=== PATIENT | female | born 1935 | race African-American/Black ===

== ENCOUNTER 2019-05-08 18:42 | Emergency (ER) | payer OTHER, MEDICARE ==
[~2019-05-08] VITALS: Ht 167.6 cm; Wt 100.2 kg
[2019-05-08 19:03] LABS: EOSINOPHILS 3.9 % (0.0-3.0); HEMATOCRIT 41.3 % (37.0-47.0); HEMOGLOBIN 13.5 gm/dL (12.0-15.0); LYMPHOCYTES 16.1 % (24.0-44.0); MCH 26.8 pg (26.0-34.0); MCHC 32.6 g/dL (28.0-37.0); MCV 82.2 fL (80.0-100.0); MONOCYTES 8.5 % (1.0-8.0); PLATELET COUNT 139 thou/uL (150-400); POLYS 70.5 % (36.0-66.0); RBC 5.03 mil/uL (4.20-5.00); RDW 14.9 % (10.5-14.5); WBC 5.7 thou/uL (4.0-11.0)
[2019-05-08 19:10] LABS: ANION GAP 7 mmol/L (7-16); BUN 9 mg/dL (7-18); CALCIUM 9.4 mg/dL (8.5-10.1); CHLORIDE 103 mmol/L (98-107); CO2 29 mmol/L (21-32); GLUCOSE 117 mg/dL (74-106); POTASSIUM 3.9 mmol/L (3.5-5.1); SODIUM 139 mmol/L (136-145)
[2019-05-08 19:20] LABS: ALBUMIN 3.7 g/dL (3.4-5.0); SGOT 26 U/L (15-37); SGPT 16 U/L (30-65); TOTAL BILIRUBIN 0.6 mg/dL (<0.1-1.0); TOTAL PROTEIN 8.2 g/dL (6.4-8.2); TROPONIN-I <0.06 ng/mL (<0.06)
[2019-05-08] MEDS ORDERED: METHOCARBAMOL500 M2 PO (20:02)
[2019-05-08] MEDS ORDERED: TRAMADOL 50 MG50 MG PO (20:02)
[2019-05-08 20:39] VITALS: BP 174/99
--- NOTE | 2019-05-09 08:23 | EKG ---
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[facility] : 1935 Requested By: Patrick Brewster Order Number: [id number] MD: Kade Givens Measurements Intervals [place] Rate: 91 P: 60 [place]: 269 QRS: -12 QRSD: 92 T: 58 QT: 348 QTc: 429 Interpretive Statements Sinus rhythm Prolonged [place] interval Compared to ECG 09/28/2003 07:39:22 Pacing is no longer present Electronically Signed On 05-09-2019 8:21:43 CDT by Kade Givens [email or web address] <ELECTRONICALLY SIGNED> By: Kade Givens MD, FACC 05/09/19 0821 1857 56 Kade Givens MD, [facility] /EPI
== END 2019-05-08 20:40 | disposition home or self-care (01) ==
LOC: ER 18:42
PROVIDERS: Emergency Medicine
DX: R07.89 Other chest pain (principal); J03.90 Acute tonsillitis, unspecified; R20.2 Paresthesia of skin; G44.209 Tension-type headache, unspecified, not intractable; I10 Essential (primary) hypertension; I49.5 Sick sinus syndrome; I48.91 Unspecified atrial fibrillation; Z90.49 Acquired absence of other specified parts of digestive tract; Z90.710 Acquired absence of both cervix and uterus; Z95.0 Presence of cardiac pacemaker; Z98.890 Other specified postprocedural states

== ENCOUNTER 2020-11-06 09:05 | Emergency (ER) | payer OTHER, MEDICARE ==
[~2020-11-06] VITALS: Ht 167.6 cm; Wt 122.5 kg
--- NOTE | ~2020-11-06 | EMS ---
[place] [address] EMS Patient Care Report Name: RAINER BROOKE Room #: DEP MATA Coker#: [id number] Admission: 11/06/20 Attend Phys: Discharge: 11/06/20 Date of : 35 Report #: [id number] THIS REPORT FOR: //name// Report Transmitted: 11/08/2020 13:16 EMS Care Summary [place], [place]/[facility] Incident [id number] @ 11/06/2020 08:24 Incident Location [address] [place] [address] Patient RAINER BROOKE Female, 85 Years 1935 Patient Address [address] [place] [address] Patient History Hypertension (HTN), Patient Allergies Sulfur allergy, Patient Medications Clonidine, Chief Complaint head pain Disposition Transported No Lights/Pe [place] Dispatch Reason Falls Transported To [facility] Narrative ems met p52 on scene. pt found sitting upright in chair and alert. pt a&ox4 gcs 15 and did not present in apparent distress. pt stated she tripped and fell and [address] [address] EMS Patient Care Report Name: RAINER BROOKE Room #: DEP AmyNorm#: [id number] Admission: 11/06/20 Attend Phys: Discharge: 11/06/20 Date of : 35 Report #: [id number] hit her head. neg loc. pt has a hematoma to her forehead. neg bloodthinners. pt was apprehensive initially but then requested to be transported to [facility]. pt has no other complaints. 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 pt stood up and walked around apartment for her belongings. pt was transferred onto ems cot and was secured in a semi fowlers position without incident. pt was loaded into ambulance. pt was loaded into ambulance. pt was transported non emergent. transport was uneventful and pt rested on ems cot. pt care was transferred to appropriate staff and ems goes back in service. pts purse was left with pt. Initial Vitals @08:44P: 104,R: 20,BP: 166/94,Pain: 2/10,GCS: 15,SpO2: 97,Revised Trauma: 12, @09:00P: 102,R: 20,BP: 144/90,GCS: 15,SpO2: 96,Revised Trauma: 12, Assessments @08:36MENTAL:No Abnormalities,SKIN:No Abnormalities,HEENT:Head/Face: Swelling,Eyes: No Abnormalities,Neck/Airway: No Abnormalities,LUNG SOUNDS:General: No Abnormalities,Left Upper: No Abnormalities,Right Upper: No Abnormalities,Left Lower: No Abnormalities,Right Lower: No Abnormalities,ABDOMEN:General: No Abnormalities,Left Upper: No Abnormalities,Right Upper: No Abnormalities,Left Lower: No Abnormalities,Right Lower: No Abnormalities,PELVIS//GI:No Abnormalities,EXTREMITIES:Left Arm: No Abnormalities,Right Arm: No Abnormalities,Left Leg: No Abnormalities,Right Leg: No Abnormalities,PULSE:NEURO:No Abnormalities,@08:52MENTAL:No Abnormalities,SKIN:No Abnormalities,HEENT:Head/Face: No Abnormalities,Eyes: No Abnormalities,Neck/Airway: No Abnormalities,LUNG SOUNDS:General: No Abnormalities,Left Upper: No Abnormalities,Right Upper: No Abnormalities,Left Lower: No Abnormalities,Right Lower: No Abnormalities,ABDOMEN:General: No Abnormalities,Left Upper: No Abnormalities,Right Upper: No Abnormalities,Left Lower: No Abnormalities,Right Lower: No Abnormalities,PELVIS//GI:No Abnormalities,EXTREMITIES:Left Arm: No Abnormalities,Right Arm: No Abnormalities,Left Leg: No Abnormalities,Right Leg: No Abnormalities,PULSE:NEURO:No Abnormalities, Impression Acute Pain, not elsewhere classified Procedures @08:36ALS AssessmentResponse: UnchangedSucceeded@PTASpinal Motion RestrictionResponse: UnchangedSucceeded Timeline 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,Spinal Motion Restriction,Response: UnchangedSucceeded, 08:23,Call Received 08:23,Dispatch Notified 08:24,Dispatched 08:25,En Route [address] [address] EMS Patient Care Report Name: RAINER BROOKE Room #: ANGIE Coker#: [id number] Admission: 11/06/20 Attend Phys: Discharge: 11/06/20 Date of : 35 Report #: [id number] 08:35,On Scene 08:36,At Patient 08:36,ALS Assessment,Response: UnchangedSucceeded, 08:44,BP: 166/94 M,PULSE: 104,RR: 20 R,SPO2: 97 Ox,ETCO2: ,BG: ,PAIN: 2,GCS: 15, 08:48,Depart Scene 09:00,BP: 144/90 M,PULSE: 102,RR: 20 R,SPO2: 96 Ox,ETCO2: ,BG: ,PAIN: ,GCS: 15, 09:03,At Destination 09:10,Call Closed Disclaimer v1.1 Copyright 2020 [employer] This EMS Care Summary contains data elements from the applicable legal record (which may be displayed differently). It is designed to provide pertinent information for the following purposes: continuity of care, clinical quality, and state data reporting. The complete legal record is available to ED staff and administrators of the receiving hospital in [employer]'s Patient Tracker. All data is provided "as is."
[~2020-11-06 09:05] MED LIST: METHOCARBAMOL500 M2 PO; TRAMADOL 50 MG50 MG PO
[2020-11-06 09:45] LABS: ABSOLUTE NEUTROPHILS 3.5 thou/uL (1.4-8.2); BASOPHILS 0.4 % (0.0-2.0); EOSINOPHILS 3.8 % (0.0-3.0); HEMOGLOBIN 12.6 gm/dL (12.0-15.0); LYMPHOCYTES 19.2 % (24.0-44.0); MCH 26.3 pg (26.0-34.0); MCHC 32.3 g/dL (28.0-37.0); MCV 81.5 fL (80.0-100.0); MONOCYTES 9.9 % (1.0-8.0); PLATELET COUNT 123 thou/uL (150-400); POLYS 66.7 % (36.0-66.0); RBC 4.79 mil/uL (4.20-5.00); RDW 14.3 % (10.5-14.5); WBC 5.2 thou/uL (4.0-11.0)
[2020-11-06 09:48] LABS: CALCIUM 9.3 mg/dL (8.5-10.1); CREATININE 1.3 mg/dL (0.6-1.0)
[2020-11-06 09:50] LABS: POTASSIUM 4.1 mmol/L (3.5-5.1)
[2020-11-06 09:53] LABS: ALBUMIN 3.4 g/dL (3.4-5.0); TOTAL BILIRUBIN 0.4 mg/dL (0.2-1.0); TOTAL PROTEIN 7.6 g/dL (6.4-8.2)
[2020-11-06 11:52] LABS: URINE BILIRUBIN NEGATIVE (Negative); URINE BLOOD NEGATIVE (Negative); URINE CLARITY CLEAR; URINE COLOR YELLOW; URINE GLUCOSE-RANDOM* NEGATIVE (Negative); URINE KETONES NEGATIVE (Negative); URINE LEUKOCYTES-REFLEX NEGATIVE (Negative); URINE NITRITE-REFLEX NEGATIVE (Negative); URINE PROTEIN (DIPSTICK) NEGATIVE (Negative); URINE UROBILINOGEN 0.2 E.U./dl (0.2-1.0)
[2020-11-06 12:30] VITALS: BP 167/98
--- NOTE | 2020-11-07 07:59 | EKG ---
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1935 Requested By: Seferino Noguera Order Number: [id number] MD: Kade Givens Measurements Intervals [place] Rate: 70 P: 41 FL: 282 QRS: -23 QRSD: 98 T: 4 QT: 395 QTc: 427 Interpretive Statements Sinus rhythm Prolonged [place] interval Inferior infarct, old Compared to ECG 05/08/2019 18:57:55 Inferior Q waves are more prominent Electronically Signed On 11-07-2020 7:59:33 CDT by Kade Givens [email or web address] <ELECTRONICALLY SIGNED> By: Kade Givens MD, [facility] 11/07/20 0759 0915 4 Kade Givens MD, FACC /EPI
== END 2020-11-06 12:33 | disposition home or self-care (01) ==
LOC: ER 09:05
PROVIDERS: Emergency Medicine
DX: S00.03XA Contusion of scalp, initial encounter (principal); M54.2 Cervicalgia; I10 Essential (primary) hypertension; I48.0 Paroxysmal atrial fibrillation; Z90.711 Acquired absence of uterus with remaining cervical stump; Z90.49 Acquired absence of other specified parts of digestive tract; Z90.89 Acquired absence of other organs; Z98.890 Other specified postprocedural states; Z79.899 Other long term (current) drug therapy; Z88.2 Allergy status to sulfonamides; Z91.018 Allergy to other foods; W01.0XXA Fall on same level from slipping, tripping and stumbling without subsequent striking against object, initial encounter; Y93.89 Activity, other specified; Y92.091 Bathroom in other non-institutional residence as the place of occurrence of the external cause; Y99.8 Other external cause status

== ENCOUNTER 2020-12-12 08:59 | Inpatient (IN) | payer OTHER, MEDICARE ==
[~2020-12-12] VITALS: Ht 167.6 cm; Wt 100.2 kg
[2020-12-12 09:00] VITALS: BP 170/101
[2020-12-12] MEDS ORDERED: LANSOPRAZOLE30 MG PO (09:25)
[2020-12-12] MEDS ORDERED: METHADONE HCL 110 M1 PO (09:25)
[2020-12-12] MEDS ORDERED: CARVEDILOL25 MG PO (09:26)
[2020-12-12] MEDS ORDERED: CLONIDINE HCL0.1 MG PO (09:26)
[2020-12-12] MEDS ORDERED: NEURONTIN 300M300 M2 PO (09:26)
[2020-12-12] MEDS ORDERED: RAMIPRIL10 MG PO (09:26)
[2020-12-12] MEDS ORDERED: AMLODIPINE BESY10 MG PO (09:26)
[2020-12-12] MEDS ORDERED: FUROSEMIDE 20 M20 M1 PO (09:27)
[2020-12-12 09:39] LABS: ABSOLUTE NEUTROPHILS 5.3 thou/uL (1.4-8.2); BASOPHILS 0.3 % (0.0-2.0); EOSINOPHILS 1.6 % (0.0-3.0); HEMATOCRIT 39.8 % (37.0-47.0); MCH 26.7 pg (26.0-34.0); MCHC 32.6 g/dL (28.0-37.0); MCV 81.9 fL (80.0-100.0); MONOCYTES 6.4 % (1.0-8.0); PLATELET COUNT 129 thou/uL (150-400); POLYS 78.7 % (36.0-66.0); RBC 4.86 mil/uL (4.20-5.00); RDW 14.7 % (10.5-14.5); WBC 6.7 thou/uL (4.0-11.0)
[2020-12-12 09:45] LABS: URINE BILIRUBIN NEGATIVE (Negative); URINE BLOOD 1+ (Negative); URINE CLARITY CLEAR; URINE COLOR YELLOW; URINE GLUCOSE-RANDOM* NEGATIVE (Negative); URINE KETONES NEGATIVE (Negative); URINE LEUKOCYTES-REFLEX NEGATIVE (Negative); URINE NITRITE-REFLEX NEGATIVE (Negative); URINE PROTEIN (DIPSTICK) NEGATIVE (Negative); URINE SPECIFIC GRAVITY 1.015 (1.005-1.035); URINE UROBILINOGEN 0.2 E.U./dl (0.2-1.0)
[2020-12-12 09:50] LABS: CALCIUM 9.3 mg/dL (8.5-10.1)
[2020-12-12 10:01] LABS: ALBUMIN 3.9 g/dL (3.4-5.0); TOTAL BILIRUBIN 0.4 mg/dL (0.2-1.0); TOTAL PROTEIN 7.9 g/dL (6.4-8.2)
[2020-12-12 10:57] LABS: SQUAMOUS 0-3 Few /LPF (0-3)
[2020-12-12 10:58] LABS: BACTERIA-REFLEX None Seen /HPF (None Seen); CASTS None Seen /LPF (None Seen); CRYSTALS None Seen /LPF (None Seen); URINE RBC 1-2 Rare /HPF (NONE SEEN); URINE WBC-REFLEX 0-5 Rare /HPF (0-5)
--- NOTE | 2020-12-12 15:44 | NUR ---
GAVE UPDATE TO PATIENTS DAUGHTER AT THIS TIME
[2020-12-12 18:25] VITALS: BP 188/95
[2020-12-12 20:02] VITALS: BP 158/97
--- NOTE | 2020-12-13 04:31 | NUR ---
PT ARRIVED ON THE UNIT AT 1900 IN A WC. PT IS ALERT AND ORIENTED X4. PT WAS ORIENTED TO THE ROOM AND EDUCATED ON THE USE OF CALL LIGHT. PT IS UPX1 WITH A CANE. PT IS ON RA. PAIN WAS MANAGED BY PRN PAIN MEDS. MEDS WERE GIVEN PER EMAR ORDERS. NO VISIBLE SIGN OF DISTRESS WAS NOTED. FALL PRECAUTIONS IN PLACE. WILL CONTINUE TO MONITOR.
[2020-12-13 07:37] VITALS: BP 167/95
--- NOTE | 2020-12-13 08:31 | NUR ---
PT WAS EVALUATED FOR ACUTE AND/OR HOME OT AND PT DOES NOT NEED AT THIS TIME AND IS D/C
[2020-12-13 16:06] VITALS: BP 150/90
--- NOTE | 2020-12-13 16:22 | NUR ---
PT ADMITTED RELATED TO INTRACTABLE BACK PAIN. CM REVIEWED CHART AND SPOKE WITH CARE TEAM. CM MET WITH PT AT BEDSIDE THIS DAY. PT APPEARED TO BE A&O X4. CM ROLE INTRODUCED. PT INDICATED SHE RESIDES IN AN APARTMENT IN A HALF-WAY COMMUNITY ALONE. SHE INDICATED NO STEPS TO ENTER AND NO STEPS INSIDE. 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 PT INDICATED SHE HAS DME FOR USE AT HOME IF SHE NEEDS IT. PT INDICATED SHE HAD HH IN THE PAST BUT NOTHING RECENTLY. PT INDICATED SHE PLANS TO RETURN HOME ONCE MEDICALLY STABLE. PT'S PCP IS DR. RAMILA [place]. IT IS ANTICIPATED THAT PT MAY BE MEDICALLY STABLE TO DC OVER THE WEEKEND. PT INDICATED SHE ISN'T INTERESTED IN HH UPON DC. CM FOLLOWING SHOULD ANY DC NEEDS ARISE.
--- NOTE | 2020-12-13 19:26 | NUR ---
Assumed pt care at 7am.Pt in and out of bed with walker and sba.Assessment completed vss but elevated bp noted.Coreg given with am meds.Pt c/o back pain oxycodone given with relief. Dr Richard here,order noted.Pt medical records obtained from [facility] and placed in chart for review.Fallprecaution in place. Will continue to monitor.
[2020-12-13 20:30] VITALS: BP 140/81
--- NOTE | 2020-12-14 06:42 | NUR ---
ASSUMED CARE AT 1900, PT CONTINUE TO BE ON PAIN MANAGEMENT, PRN MEDICATION ADMINISTERED ORDERED, NO ADVERSE RERACTION NOTED, WILL CONTINUE TO MONITOR.
[2020-12-14 07:42] VITALS: BP 120/85
--- NOTE | 2020-12-14 14:27 | NUR ---
Assumed pt care at 7am.Pt in and out of bed with walker and sba. Assessment completed.vss.Dr Richard here and order noted. Consult called to Dr Barkley and he rounded on pt.Oxycodone given per pt request with partial relief. Pt in bed resting and watching tv at present.Fall precaution in place. Will continue to monitor.
[2020-12-14 16:58] VITALS: BP 122/77
[2020-12-14 19:30] VITALS: BP 159/69
[2020-12-15 08:07] VITALS: BP 186/108
--- NOTE | 2020-12-15 09:24 | NUR ---
PT CONTINUES TO BE ON PAIN MANAGEMENT OF THE RIGHT BACK RADIATING OVER THE KIDNEY, MEDICATIONS ADMINISTERED SCHEDULED, SLEPT THROUGH THE NIGHT WILL CONTINUE TO MONITOR.
[2020-12-15 15:53] VITALS: BP 131/61
--- NOTE | 2020-12-15 18:01 | NUR ---
Assumed pt care at 7am.Pt in bed resting and worried about elevated bp early this am and constant pain to back. Emotional support given.Oral bp meds given with better result. Dr Richard here,order noted. Gi consult done and Dr Paredes rounded on pt later this afternoon. Order noted. Received call from pt's niece, updates given.Pain meds given with relief.Fall precaution in place.Will continue to monitor.
[2020-12-15 19:24] VITALS: BP 129/70
--- NOTE | 2020-12-16 04:48 | NUR ---
ASSUMED CARE AT 1900, PT REPORTS PAIN, MEDICATIONS ADMINISTERED INCLUDING SCHEDULED DOSES, NO ADVERSE REACTION NOTED WILL CONTINUE TO MONITOR.
[2020-12-16 07:21] VITALS: BP 138/81
[2020-12-16] MEDS ORDERED: TRAMADOL 50 MG50 MG PO (09:24)
[2020-12-16] MEDS ORDERED: HYOSCYAMINE0.125 M1 PO (10:23)
[2020-12-16 10:58] VITALS: BP 140/85
[2020-12-16 11:13] VITALS: BP 125/65
[2020-12-16 13:04] LABS: HEMOGLOBIN 12.1 gm/dL (12.0-15.0); MCH 26.3 pg (26.0-34.0); MCHC 31.7 g/dL (28.0-37.0); MCV 83.1 fL (80.0-100.0); RBC 4.58 mil/uL (4.20-5.00); RDW 14.7 % (10.5-14.5); WBC 4.9 thou/uL (4.0-11.0)
[2020-12-16 13:10] LABS: CREATININE 2.4 mg/dL (0.6-1.0); POTASSIUM 4.1 mmol/L (3.5-5.1)
[2020-12-16 13:30] VITALS: BP 153/82
--- NOTE | 2020-12-16 14:26 | HC ---
[facility] [place] [address] CONSULTATION Name: RAINER BROOKE Room #: 458-P ADM IN M.R.#: [id number] Admission: 12/12/20 Attend Phys: Chad Richard MD Discharge: Date of : 35 Report #: [id number] THIS REPORT FOR: cc: Shailesh Mclean MD, [place] S. MD McElhinney, Christian C. MD ~ cc: Dr. Barkley, Chad Richard MD DATE OF SERVICE: 12/15/2020 HISTORY OF PRESENT ILLNESS: The patient is an 85-year-old female who was admitted for intermittent right upper quadrant abdominal pain. This has been ongoing for several months. She also reports nausea. She denies any emesis. No fevers or chills. She has had a previous cholecystectomy, but cannot recall when this was removed. The patient reports bowel movements have been normal. She does have a history of chronic low back pain. At one point had a spinal stimulator, but this was later removed. She has been on methadone for chronic pain. The patient underwent a CT scan of the abdomen and pelvis on admission, which showed generalized intrahepatic and common bile duct dilation with intrahepatic ductal dilation, which is likely chronic and related to the patient's age and prior cholecystectomy. No definitive obstructive mass or stone is noted. Of note, her liver function tests are normal. No previous history of liver abnormalities. She denies any increased abdominal pain after eating. She does report heartburn at times. She does take Prevacid 30 mg on a daily basis. She denies any dysphagia. PAST MEDICAL HISTORY: Hypertension, history of pacemaker placement, sick sinus syndrome, previous cholecystectomy, hysterectomy, appendectomy, laminectomy with fusion, previous spinal stimulator, status post removal. Reportedly, chronic pain, low back pain. ALLERGIES: SULFONAMIDES. PAST MEDICAL HISTORY: As per HPI. FAMILY HISTORY: Negative for colon cancer. SOCIAL HISTORY: She denies any tobacco or alcohol use. PHYSICAL EXAMINATION: VITAL SIGNS: Temperature is 36.5, pulse 62, blood pressure is 186/108, respiratory rate is 18. GENERAL: She is alert and oriented x3, in no acute distress. HEENT: Sclerae nonicteric. Oropharynx clear. NECK: Supple, without lymphadenopathy. CARDIOVASCULAR: Regular rate and rhythm. [facility] [address] [place] [address] CONSULTATION Name: RAINER BROOKE Room #: [address] [place] [address] IN M.R.#: [id number] Admission: 12/12/20 Attend Phys: Chad Richard MD Discharge: Date of : 35 Report #: [id number] CHEST: Clear to auscultation bilaterally. ABDOMEN: Soft. She is mildly tender to palpation in the right upper quadrant, nondistended, obese. Normoactive bowel sounds. EXTREMITIES: No cyanosis, clubbing or edema. LABORATORY DATA: WBC 6.7, hemoglobin 13.0, platelet count is 129. Sodium 143, potassium 4.0, chloride 105, bicarbonate 29, BUN 10, creatinine 1.0, glucose 105, calcium 9.3, total bilirubin 0.4, AST is 28, ALT 19, alkaline phosphatase 101. Troponin 15, albumin 3.9, total protein 7.9. UA was essentially negative. Chest x-ray showing mild bilateral lower lung nonconsolidative interstitial opacities, infiltrate, atelectasis versus scarring. Otherwise, normal. Myocardial cardiomegaly with pacemaker was also noted. CT of his thoracic spine showed no acute osseous abnormalities of the thoracic spine. Moderate to severe degenerative disk disease was noted. ASSESSMENT AND PLAN: Right upper quadrant abdominal pain. The patient does have dilated intrahepatic and common bile duct on CT. However, she has had a previous cholecystectomy and I suspect this is due to a previous cholecystectomy and age. Liver function tests are normal. Could consider MRCP; however, she has a pacemaker. I do not think it is likely she has a common bile duct stone. We will start Levsin t.i.d. To see if this is helpful for her intermittent abdominal pain. The pain is not associated with meals. We will continue to follow. Thank you for allowing me to participate in her care. <ELECTRONICALLY SIGNED> By: Juwan Simpson MD 12/16/20 1426 21 51 Juwan Simpson MD /nt
[2020-12-16 15:10] VITALS: BP 114/76
--- NOTE | 2020-12-16 16:17 | NUR ---
Code stroke was called on patient at 1233, patient had slurred speech, was lethargic, and had trouble with balance/holding up both right and left arms. Team came in to assess patient to include stroke team, Dr. Matthews, Dr. Sanchez notified via telephone. Patient assessed by [facility] doctor and responded to him much better. CTA of head completed
--- NOTE | 2020-12-16 16:21 | NUR ---
Patient bladder scanned showed 463mL, patient notified, able to urinated in bathroom. Post bladder scan 0mL
--- NOTE | 2020-12-16 16:31 | NUR ---
CODE STROKE WAS CALLED ON PT THIS AM. TESTING DONE. DC FOR THIS DAY CANCLED. ANTIPATE POSSIBLE DC TOMORROW HOME WITH HOME HEALTH. CM FOLLOWING.
[2020-12-16 20:06] VITALS: BP 150/80
--- NOTE | 2020-12-17 05:34 | NUR ---
pain controlled this shift. hyoscyamine given x1 this shift. patient ambulates to the bathroom with a cane with steady gaits. fall precaution in place. patient in bed asleep at this time breathing regular and unlaboured.
[2020-12-17 05:39] LABS: CALCIUM 8.8 mg/dL (8.5-10.1); CREATININE 1.7 mg/dL (0.6-1.0); POTASSIUM 4.5 mmol/L (3.5-5.1)
[2020-12-17 09:30] VITALS: BP 144/83
--- NOTE | 2020-12-17 14:23 | NUR ---
PT IS GETTING STROKE WORK UP AND HAVING LABS THIS DAY. ANTICIPATE POSSIBLE DC HOME TOMORROW WITH HH SERVICES. PT HAD PREVIOUSLY INDICATED NO PREFEREANCE FOR PROVIDERS OPTIONS PROVIDED. PT INDICATED THAT REFERRAL COULD BE SENT TO [facility]. REFERRAL SENT. THEY CAN ACCEPT.
[2020-12-17 19:29] VITALS: BP 147/81
--- NOTE | 2020-12-17 19:44 | NUR ---
Assumed pt care this am, as advised by the MD that stroke work up is to be done d/t even yesterday. Pt is resistant and beligerent when work up was done and neurologist came to talk with the pt. Pt stated since yesterday she had gotenthe worse care and she was not being heard. Pt mentioned she would call out for pain meds and for he bp meds to ge given but was not done by the nurse, thus the even happening since she was in so much pain. Pt is convinced that she has gotten more confused since doctors have no communicated what is happening to her for this admission. Pt did mention that she will go home tomorrow regardless of what the doctors say. Endorsed to the night nurse to inform the day nurse to inform the MD of the said concerns. Pt IV got infiltrated at shift change and refused to be reinserted. POC followed.
--- NOTE | 2020-12-18 03:01 | NUR ---
PATIENT AOX4 MAKES NEEDS KNOWN.PAIN CONTROLLED THIS SHIFT.PATIENT AMBULATES IN THE ROOM WITH STEADY GAITS. PATIENT REFUSED MAINTANCE FLUID D/T BEING D/CD TODAY. FALL PRECAUTION IN PLACE.PATIENT IN BED ASLEEP AT THIS TIME BREATHING REGULAR AND UNLABOURED.
[2020-12-18 08:03] VITALS: BP 185/100
[2020-12-18 08:34] LABS: CHOLESTEROL 162 mg/dL (<200); HDL CHOLESTEROL 65 mg/dL (>40); LDL CHOLESTEROL 80 mg/dL (<100); TC:HDL 2.5 Ratio (Not establshd); TRIGLYCERIDE 87 mg/dL (<150); VLDL 17 mg/dL (<40)
[2020-12-18 08:35] LABS: SERUM ASSESSMENT Clear
--- NOTE | 2020-12-18 10:09 | HC ---
[facility] [place] [address] CONSULTATION Name: RAINER BROOKE Room #: 458-P ADM IN M.R.#: [id number] Admission: 12/12/20 Attend Phys: Chad Richard MD Discharge: Date of : 35 Report #: [id number] THIS REPORT FOR: cc: Shailesh Mclean MD, Washington S. MD Khosla, Parveen K. MD ~ DATE OF SERVICE: 12/17/2020 HISTORY OF PRESENT ILLNESS: This is an 85-year-old female patient who was evaluated by me for an episode of speech difficulty. This is as per record, she says she does not remember having any speech difficulty or any confusion. I talked to the nurses. They also indicated she had some speech difficulty and she was worked up as a stroke yesterday. Records indicate she had a CT scan of the head which was unremarkable. She had a frontal scalp hematoma according to them, which has resolved. They were comparing with a pretty old CT scan. She also had a carotid Doppler done, which does not show any hemodynamically significant stenosis. She has a pacemaker, which she says it is incompatible with MRI and she did not have a CT angiogram because her GFR was only 23 yesterday and is 35 today, which is still pretty low. I saw a note from Teleneurology, who were consulted and their notes indicate NIH stroke scale of only 1. They basically recommended echo and MRI without contrast, which has been ordered, but is not done. I will cancel it because she says her pacemaker is incompatible with MRI. REVIEW OF SYSTEMS: A 14-point review of system was carried out. She indicates she has a pain in the abdomen. This is a longstanding pain. No cause has been found. She is being worked up. She has hypertension. She has sick sinus syndrome with pacemaker. She had a laminectomy in the past. She has a history of a hysterectomy and cholecystectomy. She had surgery on the ureter. That was a relevant 14-point review of systems. Presently, she says she is not confused, does not have any eye, ENT, cardiac symptoms. She has mainly abdominal symptoms. She has no new musculoskeletal, constitutional, dermatological, hematological, psychiatric, throat, allergic symptom associated with present symptomatology. PAST MEDICAL HISTORY: Negative for any stroke according to her. FAMILY HISTORY: Negative for early age stroke. SOCIAL HISTORY: She says she does not drink any alcohol or smoke. PHYSICAL EXAMINATION: Indicate she is alert and responsive. She is oriented. She knows who the president is. She knows what hospital she is in. Cranial nerve examination is unremarkable. Neuromuscular examination is symmetrical. Strength is symmetrical. Tone is symmetrical. She has a good position sense on both sides. Reflexes are somewhat diminished. Both the plantars are mute. She [address] [address] CONSULTATION Name: RAINER BROOKE Room #: 458-P [facility] IN M.R.#: [id number] Admission: 12/12/20 Attend Phys: Chad Richard MD Discharge: Date of : 35 Report #: [id number] does not have any cerebellar sign. I could not look at the patient's fundus. She is obese. Her pulses are difficult to feel in the lower extremities. There is no edema. Her hearing and vision is acceptable and adequate. She has no dysmorphic features of the face. She has no respiratory difficulty. Cardiac examinations indicate that she has a pacemaker put in. Notes indicate she was already seen by Neurosurgery. IMPRESSION: 1. Although it is difficult to tell, this patient may have had a TIA. 2. One of the notes indicated that she may have had atrial fibrillation. If that is the case, then I think we need to consult Cardiology to interrogate the pacemaker or confirm if she has atrial fibrillation because that may change the antithrombotic therapy and she may need anticoagulation. That will be deferred to them because she also has some history of falls. 3. I do not think much can be done in this patient otherwise. I did order some blood workup. I ordered a lipid profile and that should be checked and statin may have to be started depending upon LDL. The rest of the workup can also be checked, which I ordered, but I do not think anything else can be done because if her pacemaker is incompatible with MRI, we cannot do an MRI and CT angiogram is not a desirable thing to do in this patient at this stage because of her GFR and because of the fact that large vessel occlusion is unlikely and even if it is present, her NIH scale appeared to be 0. I discussed all of it with this patient and she is agreeable with this plan. Thank you very much for this referral and if you have any questions, please feel free to contact me. <ELECTRONICALLY SIGNED> By: Aaron Pickett MD 12/18/20 1009 1710 19 Aaron Pickett MD /nt
[2020-12-18 10:32] LABS: ANION GAP < 0 mmol/L (7-16); BUN 21 mg/dL (7-18); CALCIUM 9.6 mg/dL (8.5-10.1); CHLORIDE 103 mmol/L (98-107); CO2 38 mmol/L (21-32); CREATININE 0.9 mg/dL (0.6-1.0); GLUCOSE 93 mg/dL (74-106); POTASSIUM 3.9 mmol/L (3.5-5.1); SODIUM 132 mmol/L (136-145)
[2020-12-18 12:53] VITALS: BP 140/85
--- NOTE | 2020-12-18 13:10 | NUR ---
Assumed pt care at 7am. Pt in bed very anxious about goung home today. Assessment completed.vss.Pt up to bathroom to void as needed. Am meds given with breakfast and well tolerated. generation technologist here for echo as ordered by cardiology but pt refused.She stated that it can be done at her cardiology's office and doesn't want any extra care. Dr Sanchez notified,dc order noted. Dc summary compile and reviewed with pt.Son picked pt up at 1330 per wc accompanied by bread stacker.
[2020-12-18 13:18] VITALS: BP 140/85
--- NOTE | 2020-12-18 13:25 | NUR ---
CARE TEAM INDICATED PT IS MEDICALLY STABLE TO DC HOME THIS DAY. CM FAXED ORDERS TO [facility]. CM FOLLOWING REGARDING DC PLANNING.
[2020-12-18] MEDS ORDERED: ASA81BEC PO (15:30)
[2020-12-19 21:06] LABS: SYPHILIS AB Non Reactive (Non Reactive)
[2020-12-20 14:07] LABS: ANA INTERPRETATION Positive (Negative)
== END 2020-12-18 13:21 | disposition home health service (06) | DRG 552 ==
LOC: ER 08:59 → EROBS 14:09 → 4W 14:09
PROVIDERS: Emergency Medicine; Hospitalist; Psychiatry & Neurology Neuromuscular Medicine; ADMIT Hospitalist; ATTEND Hospitalist
DX: M51.34 Other intervertebral disc degeneration, thoracic region (principal); N17.9 Acute kidney failure, unspecified; E66.9 Obesity, unspecified; I10 Essential (primary) hypertension; I49.5 Sick sinus syndrome; G89.29 Other chronic pain; M19.90 Unspecified osteoarthritis, unspecified site; Z60.2 Problems related to living alone; R53.81 Other malaise; M81.0 Age-related osteoporosis without current pathological fracture; K21.9 Gastro-esophageal reflux disease without esophagitis; K83.9 Disease of biliary tract, unspecified; Z79.899 Other long term (current) drug therapy; Z90.710 Acquired absence of both cervix and uterus; Z88.8 Allergy status to other drugs, medicaments and biological substances; Z90.49 Acquired absence of other specified parts of digestive tract; Z88.2 Allergy status to sulfonamides; Z95.0 Presence of cardiac pacemaker; Z68.35 Body mass index [BMI] 35.0-35.9, adult
CPT/HCPCS: 10040

== ENCOUNTER 2020-12-29 23:29 | Emergency (ER) | payer OTHER, MEDICARE ==
[~2020-12-29] VITALS: Ht 167.6 cm; Wt 117.9 kg
[~2020-12-29 23:29] MED LIST changes: +AMLODIPINE BESY10 MG PO; +ASA81BEC PO; +CARVEDILOL25 MG PO; +CLONIDINE HCL0.1 MG PO; +FUROSEMIDE 20 M20 M1 PO; +HYOSCYAMINE0.125 M1 PO; +LANSOPRAZOLE30 MG PO; +METHADONE HCL 110 M1 PO; +NEURONTIN 300M300 M2 PO; +RAMIPRIL10 MG PO
[2020-12-30 00:56] LABS: URINE BILIRUBIN NEGATIVE (Negative); URINE BLOOD 1+ (Negative); URINE CLARITY CLEAR; URINE COLOR YELLOW; URINE GLUCOSE-RANDOM* NEGATIVE (Negative); URINE KETONES NEGATIVE (Negative); URINE LEUKOCYTES-REFLEX NEGATIVE (Negative); URINE NITRITE-REFLEX NEGATIVE (Negative); URINE PROTEIN (DIPSTICK) NEGATIVE (Negative); URINE UROBILINOGEN 0.2 E.U./dl (0.2-1.0)
[2020-12-30 01:41] LABS: BACTERIA-REFLEX None Seen /HPF (None Seen); CASTS None Seen /LPF (None Seen); CRYSTALS None Seen /LPF (None Seen); MUCUS None Seen strn/LPF (None Seen); SQUAMOUS None Seen /LPF (0-3); URINE RBC 1-2 Rare /HPF (NONE SEEN); URINE WBC-REFLEX None Seen /HPF (0-5); YEAST-REFLEX Present (None Seen)
[2020-12-30 02:14] LABS: ABSOLUTE NEUTROPHILS 2.7 thou/uL (1.4-8.2); BASOPHILS 0.3 % (0.0-2.0); EOSINOPHILS 3.4 % (0.0-3.0); HEMATOCRIT 39.9 % (37.0-47.0); HEMOGLOBIN 12.7 gm/dL (12.0-15.0); LYMPHOCYTES 25.7 % (24.0-44.0); MCH 26.4 pg (26.0-34.0); MCHC 31.8 g/dL (28.0-37.0); MCV 83.2 fL (80.0-100.0); MONOCYTES 8.1 % (1.0-8.0); PLATELET COUNT 145 thou/uL (150-400); POLYS 62.5 % (36.0-66.0); RDW 14.8 % (10.5-14.5); WBC 4.4 thou/uL (4.0-11.0)
[2020-12-30 02:16] LABS: CALCIUM 8.7 mg/dL (8.5-10.1); CREATININE 0.9 mg/dL (0.6-1.0); POTASSIUM 3.6 mmol/L (3.5-5.1)
[2020-12-30 02:23] LABS: ALBUMIN 3.7 g/dL (3.4-5.0); DIRECT BILIRUBIN 0.1 mg/dL (<0.1-0.2); TOTAL BILIRUBIN 0.4 mg/dL (0.2-1.0); TOTAL PROTEIN 7.6 g/dL (6.4-8.2)
[2020-12-30 04:51] VITALS: BP 172/93
--- NOTE | 2020-12-30 06:54 | EKG ---
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 12/30/20 0653 003 0031 Javier Gonzalez MD, FACC /EPI
== END 2020-12-30 04:51 | disposition home or self-care (01) ==
LOC: ER 23:29
PROVIDERS: Student in an Organized Health Care Education/Training Program
DX: R10.11 Right upper quadrant pain (principal); I10 Essential (primary) hypertension; Z79.82 Long term (current) use of aspirin; Z79.1 Long term (current) use of non-steroidal anti-inflammatories (NSAID); Z79.899 Other long term (current) drug therapy; Z79.891 Long term (current) use of opiate analgesic; Z88.2 Allergy status to sulfonamides; Z88.8 Allergy status to other drugs, medicaments and biological substances; Z91.018 Allergy to other foods